=== PATIENT | female | born 1960 | race Caucasian/White ===

== ENCOUNTER 2023-10-09 15:31 | Emergency (ER) | payer OTHER ==
[2023-10-09 15:37] VITALS: BP 129/82; RESP 18; BMI 34.7
[2023-10-09] MEDS ORDERED: SODIUM CHLORIDE 0.9% 500 ML INFUS.BAG IV ONE (16:17)
[2023-10-09] MEDS ORDERED: ACETAMINOPHEN 1000 MG/100 ML BAG IVPB ONE (16:17)
[2023-10-09] MEDS ORDERED: FAMOTIDINE 20 MG/50 ML IVPB 20 MG/50 ML MG IVPB ONE ×2 (16:24→17:36)
[2023-10-09] MEDS ORDERED: ONDANSETRON 4 MG/2 ML VIAL IVPB ONE (16:25)
[2023-10-09] MEDS ORDERED: ACETAMINOPHEN INJECTION 100 ML IVPB ONE (17:36)
[2023-10-09] MEDS ORDERED: ONDANSETRON 4 MG/2 ML VIAL ONE (17:36)
[2023-10-09 17:44] LABS: BASO % 0.3 % (0-2.0); HEMATOCRIT 39.1 % (32.4-45.2); HEMOGLOBIN 12.9 GM/dL (10.7-15.3); LYMPH % 12.9 % (8-40); MCH 27.4 pg (25.7-33.7); MEAN PLT VOLUME 7.8 fl (7.5-11.1); MONO % 9.9 % (3.8-10.2); NEUT % 76.9 % (42.8-82.8); PLATELET COUNT 201 10^3/uL (134-434); RBC 4.71 M/mm3 (3.60-5.2); RDW 14.6 % (11.6-15.6); WHITE BLOOD COUNT 10.2 K/mm3 (4.0-10.0)
[2023-10-09 18:07] LABS: POTASSIUM 5.3 mmol/L (3.5-5.1)
[2023-10-09 18:09] LABS: ALBUMIN 3.4 g/dl (3.4-5.0); BLOOD UREA NITROGEN 9.4 mg/dL (7-18); CALCIUM 8.6 mg/dL (8.5-10.1)
[2023-10-09 18:14] LABS: BILIRUBIN,TOTAL 0.7 mg/dL (0.2-1); TOT PROT 7.9 g/dl (6.4-8.2)
[2023-10-09 19:29] VITALS: PULSE 80; TEMP 98.5
== END 2023-10-09 20:18 | disposition home or self-care (01) ==
LOC: JER 15:31
PROC: 3E033GC Introduction of Other Therapeutic Substance into Peripheral Vein, Percutaneous Approach (ICD-10-PCS; principal; 2023-10-09)
PROC: 3E033GC Introduction of Other Therapeutic Substance into Peripheral Vein, Percutaneous Approach (ICD-10-PCS; 2023-10-09)
PROC: 3E033NZ Introduction of Analgesics, Hypnotics, Sedatives into Peripheral Vein, Percutaneous Approach (ICD-10-PCS; 2023-10-09)
DX: J11.1 Influenza due to unidentified influenza virus with other respiratory manifestations (principal); R05.9 Cough, unspecified; R09.81 Nasal congestion; R07.9 Chest pain, unspecified; R63.8 Other symptoms and signs concerning food and fluid intake; R19.7 Diarrhea, unspecified; M79.10 Myalgia, unspecified site; R11.10 Vomiting, unspecified; R09.89 Other specified symptoms and signs involving the circulatory and respiratory systems; Z20.822 Contact with and (suspected) exposure to COVID-19
CPT/HCPCS: 0241U-QW; 36415; 71046-TC-FY; 80053; 85025; 99284-25; J0131

== ENCOUNTER 2024-04-12 11:04 | Emergency (ER) | payer OTHER ==
[2024-04-12 11:11] VITALS: PULSE 105; TEMP 97.6; BMI 32.5
[2024-04-12] MEDS ORDERED: METOCLOPRAMIDE HCL INJECTION 10 MG/2 ML VIAL ONE (12:13)
[2024-04-12] MEDS ORDERED: ACETAMINOPHEN INJECTION 100 ML IVPB ONE (12:13)
[2024-04-12] MEDS ORDERED: MECLIZINE HCL 25 MG TABLET (FP) ONE (12:13)
[2024-04-12] MEDS: SODIUM CHLORIDE 1,000 ML IV ONE (12:37)
[2024-04-12] MEDS: METOCLOPRAMIDE HCL INJECTION 10 MG/2 ML VIAL IVPUSH ONE (12:37)
[2024-04-12] MEDS: ACETAMINOPHEN 1000 MG/100 ML BAG IVPB ONE (12:37)
[2024-04-12] MEDS: MECLIZINE HCL 25 MG TABLET (FP) PO ONE (12:37)
[2024-04-12 12:41] LABS: BASO % 0.2 % (0-2.0); HEMATOCRIT 31.2 % (32.4-45.2); MCH 26.5 pg (25.7-33.7); MEAN CELL VOLUME 82.8 fl (80-96); MEAN PLT VOLUME 7.7 fl (7.5-11.1); MONO % 10.7 % (3.8-10.2); NEUT % 81.1 % (42.8-82.8); PLATELET COUNT 228 10^3/uL (134-434); RBC 3.77 M/mm3 (3.60-5.2); RDW 15.1 % (11.6-15.6); WHITE BLOOD COUNT 18.7 K/mm3 (4.0-10.0)
[2024-04-12 13:07] LABS: POTASSIUM 3.7 mmol/L (3.5-5.1)
[2024-04-12 13:09] LABS: CALCIUM 8.7 mg/dL (8.5-10.1)
[2024-04-12 13:10] LABS: ALBUMIN 3.2 g/dl (3.4-5.0); BLOOD UREA NITROGEN 15.2 mg/dL (7-18)
[2024-04-12 13:13] LABS: CREATININE 0.9 mg/dL (0.55-1.3)
[2024-04-12 13:14] LABS: BILIRUBIN,TOTAL 0.9 mg/dL (0.2-1)
[2024-04-12 13:43] LABS: EPI CELLS 13 /uL (0-25.1); HYALINE CASTS 0 /uL (0-3.1); PH,URINE 5.5 (5.0-8.0); URINE APPEARANCE CLOUDY; URINE BACTERIA 5123 /uL (0-1359); URINE BILIRUBIN NEGATIVE (NEGATIVE); URINE COLOR YELLOW; URINE GLUCOSE (UA) NEGATIVE (NEGATIVE); URINE KETONE TRACE (NEGATIVE); URINE LEUK ESTERASE TRACE (NEGATIVE); URINE NITRITE POSITIVE (NEGATIVE); URINE PROTEIN 1+ (NEGATIVE); URINE WBC 84 /uL (0-25.8)
[2024-04-12 13:49] LABS: URINE RBC 254.8 /uL (0-23.9)
[2024-04-12 14:04] LABS: HIV INTERPRETATION NEGATIVE (NEGATIVE)
[2024-04-12] MEDS ORDERED: CEFTRIAXONE 1 GM/50 ML BAG ONE (17:03)
[2024-04-12] MEDS: CEFTRIAXONE 1 GM in DEXTROSE 5%-WATER - 50 ML IVPB ONE (17:24)
[2024-04-12 18:25] VITALS: BP 111/67; RESP 18
== END 2024-04-12 18:21 | disposition home or self-care (01) ==
LOC: JER 11:04
PROC: 3E03329 Introduction of Other Anti-infective into Peripheral Vein, Percutaneous Approach (ICD-10-PCS; principal; 2024-04-12)
PROC: 3E033NZ Introduction of Analgesics, Hypnotics, Sedatives into Peripheral Vein, Percutaneous Approach (ICD-10-PCS; 2024-04-12)
PROC: 3E033GC Introduction of Other Therapeutic Substance into Peripheral Vein, Percutaneous Approach (ICD-10-PCS; 2024-04-12)
PROC: 3E0337Z Introduction of Electrolytic and Water Balance Substance into Peripheral Vein, Percutaneous Approach (ICD-10-PCS; 2024-04-12)
DX: R42 Dizziness and giddiness (principal); R51.9 Headache, unspecified; N30.01 Acute cystitis with hematuria; R11.2 Nausea with vomiting, unspecified; R53.1 Weakness; R53.81 Other malaise; R63.0 Anorexia; Z20.822 Contact with and (suspected) exposure to COVID-19
CPT/HCPCS: 0241U-QW; 36415; 74176-TC; 80053; 81003; 82962; 84443; 84484; 85025; 86803; 87389; 93005; 93010; 99285-25; J0131